=== PATIENT | female | born 1970 | race Caucasian/White ===

== ENCOUNTER 2016-04-17 08:48 | Emergency (ER) | payer BC, OTHER ==
[2016-04-17 09:02] VITALS: TEMP 98.1; BMI 18.8
[2016-04-17] MEDS ORDERED: KETOROLAC TROMETHAMINE 30 MG/1 ML VIAL IM ONE (09:12)
[2016-04-17] MEDS ORDERED: diazePAM 2 MG TABLET PO ONE (09:13)
[2016-04-17] MEDS ORDERED: diazePAM 2 MG TABLET ONE (09:14)
[2016-04-17] MEDS ORDERED: KETOROLAC TROMETHAMINE 30 MG/1 ML VIAL ONE (09:16)
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
[2016-04-17 11:10] VITALS: BP 128/78; PULSE 76
[2016-04-17] MEDS ORDERED: ACETAMINOPHEN 325 MG TABLET (FP) PO ONE (11:11)
[2016-04-17] MEDS ORDERED: ACETAMINOPHEN 325 MG TABLET (FP) ONE (11:14)
== END 2016-04-17 11:19 | disposition home or self-care (01) ==
LOC: JER 08:48
PROC: 3E0233Z Introduction of Anti-inflammatory into Muscle, Percutaneous Approach (ICD-10-PCS; principal; 2016-04-17)
DX: M54.2 Cervicalgia (principal); F41.8 Other specified anxiety disorders; V44.5XXA Car driver injured in collision with heavy transport vehicle or bus in traffic accident, initial encounter; Y93.89 Activity, other specified; Y92.410 Unspecified street and highway as the place of occurrence of the external cause
CPT/HCPCS: 72125-TC; 99282-25